=== PATIENT | male | born 1990 | race African-American/Black ===

== ENCOUNTER 2018-10-01 01:13 | Emergency (ER) | payer SELFPAY ==
[2018-10-01] MEDS ORDERED: FAMOTIDINE 20 MG TABLET PO ONE (01:28)
[2018-10-01] MEDS ORDERED: PREDNISONE 20 MG TABLET PO ONE (01:28)
--- NOTE | 2018-10-01 01:29 | ER Document Report ---
ED Allergic Reaction - General Chief Complaint: Hives Stated Complaint: POSSIBLE ALLERGIC REACTION Time Seen by Provider: 10/01/18 01:24 Notes: Patient is a 28-year-old male that comes to the emergency department for chief complaint of hives, he states that the rash is mainly on his face and is very itchy. Patient states that he was chased and then tackled by the police, he states that after he was tackled he broke out into hives. He states that he has had this reaction with certain types of grasses before, he was tackled in the grass. He states that he always develops hives, requires antihistamines and steroids, and then it resolves. He denies ever having facial swelling, difficulty breathing or swallowing, or requiring an EpiPen. He denies any daily medications or medical history reported otherwise. He denies any injuries from the fall, he denies headache, body pain, difficulty breathing. TRAVEL OUTSIDE OF THE [place] IN LAST 30 DAYS: No - Related Data Allergies/Adverse Reactions: grass pollen Adverse Reaction (Intermediate, Verified 10/01/18 01:21) Hives Past Medical History - General Information source: Patient, Law Enforcement - Social History Smoking Status: Never Smoker Drug Abuse: None Lives with: Alone Family History: Reviewed & Not Pertinent - Medical History Medical History: Negative Surgical Hx: Negative - Immunizations Immunizations up to date: Yes Hx Diphtheria, Pertussis, Tetanus Vaccination: Yes Review of Systems - Review of Systems Constitutional: No symptoms reported EENT: No symptoms reported Cardiovascular: No symptoms reported Respiratory: No symptoms reported Gastrointestinal: No symptoms reported Genitourinary: No symptoms reported Male Genitourinary: No symptoms reported Musculoskeletal: No symptoms reported Skin: See HPI Hematologic/Lymphatic: No symptoms reported Neurological/Psychological: No symptoms reported Physical Exam - Vital signs Vitals: Temp Pulse Resp BP Pulse Ox 98.6 F 86 14 137/66 H 97 10/01/18 01:21 10/01/18 01:21 10/01/18 01:21 10/01/18 01:21 10/01/18 01:21 - Notes Notes: GENERAL: Alert, interacts well. No acute distress. HEAD: Normocephalic, atraumatic. EYES: Pupils equal, round, and reactive to light. Extraocular movements intact. ENT: Oral mucosa moist, tongue midline. Oropharynx unremarkable. Airway patent. Uvula is normal. NECK: Full range of motion. Supple. Trachea midline. LUNGS: Clear to auscultation bilaterally, no wheezes, rales, or rhonchi. No respiratory distress. HEART: Regular rate and rhythm. No murmur ABDOMEN: Soft, non-tender. Non-distended. Bowel sounds present in all 4 quadrants. GENITOURINARY: Deferred EXTREMITIES: Moves all 4 extremities spontaneously. No edema, normal radial and dorsalis pedis pulses bilaterally. No cyanosis. BACK: no cervical, thoracic, lumbar midline tenderness. No saddle anesthesia, normal distal neurovascular exam. NEUROLOGICAL: Alert and oriented x3. Normal speech. [cranial nerves II through XII grossly intact]. PSYCH: Normal affect, normal mood. SKIN: There are a few noted faint urticarial lesions on the right forehead and on the right cheek area, remaining skin exam is normal. Course - Re-evaluation Re-evalutation: Patient with a small amount of hives over his right forehead and right side of the cheek, no other noted areas of rash, clear airway, no evidence of anaphylaxis, clear lungs. He is calm. He has had this in the past without complication although he does state that he has required steroids to get over this. Reevaluated, rash is almost completely gone, significantly improved from prior. Patient has only had improvement since initial Benadryl and additional medications. As result I have very low suspicion patient will decompensate. Patient has been medicated with prednisone, Pepcid, Benadryl. Provided with prescriptions, patient discharged with law enforcement who have been waiting at bedside. Discussed return precautions in detail, patient states understanding and agreement. - Vital Signs Vital signs: Temp Pulse Resp BP Pulse Ox 97.9 F 76 18 118/70 97 10/01/18 02:29 10/01/18 02:29 10/01/18 02:29 10/01/18 02:29 10/01/18 02:29 Discharge - Discharge Clinical Impression: Urticaria Condition: Stable Disposition: HOME, SELF-CARE Additional Instructions: Your examination shows urticaria (hives), an allergic reaction. Recommendation is to take prednisone as prescribed, take cetirizine and famotidine daily for 7 days. Follow-up with primary care. Return for any concerning symptoms including returning or spreading rash, difficulty swallowing or breathing, swelling of the tongue/face/throat, or any other concerning symptoms. Prescriptions: Cetirizine HCl [Zyrtec 10 mg Tablet] 1 tab PO DAILY #30 tablet Famotidine [Pepcid 20 mg Tablet] 20 mg PO DAILY #12 tablet Prednisone [Deltasone 10 mg Tablet] 10 mg PO ASDIR PRN #21 tablet PRN Reason:
[2018-10-01 02:34] VITALS: BP 118/70
== END 2018-10-01 02:33 | disposition home or self-care (01) ==
LOC: ER 01:13
DX: L50.9 Urticaria, unspecified (principal)
CPT/HCPCS: 99283; J7512